=== PATIENT | male | born 1980 | race Caucasian/White ===

== ENCOUNTER 2022-04-10 14:52 | Emergency (ER) | payer OTHER, SELFPAY ==
[2022-04-10 15:00] VITALS: BP 145/80; PULSE 87; RESP 16; TEMP 37; O2SAT 98
--- NOTE | 2022-04-10 15:01 | ED.WOUNDLAC ---
HPI - Wound/Laceration General Chief Complaint: Wound/Laceration Stated Complaint: left thumb lac Time Seen by Provider: 04/10/22 15:01 Source: patient and RN notes reviewed History of Present Illness HPI narrative: Patient is a 41-year-old male who presents the urgent care with complaints of laceration to the left thumb. Patient states it happened approximately 1-1/2-hour prior to arrival. Patient states that he was using a blade knife to cut something and slipped. Patient believes he is up-to-date on his tetanus shot and does not wish to have one in the facility today. Patient states he briefly ran the wound under water but otherwise did not cleanse or take anything over the counter for pain prior to arrival. No other complaints. No acute distress noted. Patient aware of the plan of care. Some parts of this dictation were generated by voice recognition software and may contain typographical and/or grammatical inaccuracies. Related Data Home Medications Medication Instructions Recorded Confirmed lisinopril 20 1 tablet PO DAILY 04/10/22 04/10/22 mg-hydrochlorothiazide 25 mg tablet paroxetine HCl 20 mg tablet 1 tablet PO DAILY 04/10/22 04/10/22 Allergies Allergy/AdvReac Type Severity Reaction Status Date / Time No Known Allergies Allergy Verified 04/10/22 15:06 Review of Systems Review of Systems: CONSTITUTIONAL: Denies fever, chills, or sweats. EYES: Denies visual changes, redness, or discharge. ENT: Denies rhinorrhea, congestion, sore throat, or otalgia. CARDIOVASCULAR: Denies chest pain, palpitations, or edema. RESPIRATORY: Denies cough or dyspnea. GASTROINTESTINAL: Denies abdominal pain, nausea, vomiting, or diarrhea. GENITOURINARY: Denies dysuria or hematuria. SKIN: Reports of a laceration to the left thumb. denies rash or itching. MUSCULOSKELETAL: Denies back pain, joint pain, or myalgia. NEUROLOGIC: Denies headache, numbness, or weakness. All other systems reviewed are negative, except as documented in HPI. PMFSH Comments At the time of my signature, I reviewed and agree with the nursing past medical, surgical, social, and family history. There is no relevant family history pertinent to the patient complaint. Exam Narrative: GENERAL: This is a well-nourished, well-developed patient, in no apparent distress. HEAD: normocephalic, atraumatic. EYES: PERRL. Sclera clear/white. Vision is grossly intact. EARS: External ears normal NOSE: External nose normal with no obvious nasal discharge, nares without redness, no rhinorrhea. THROAT: Mucous membranes moist NECK: Neck supple SKIN: 1.5 cm linear laceration to the thenar eminence of the left thumb. Warm, intact with no suspicious lesions or rash, good texture and turgor. NEURO: awake, alert, and oriented to person, place and time. There were no obvious focal neurologic abnormalities. EXTREMITIES: Range of motion to left upper extremity within normal limits with positive strong left radial pulse and capillary refill less than 2 seconds. Course Course Level of Care: Express Care Visit Vital Signs Vital signs: Vital Signs Temperature 98.6 F 04/10/22 15:00 Pulse Rate 87 04/10/22 15:00 Respiratory Rate 16 04/10/22 15:00 Blood Pressure 145/80 H 04/10/22 15:00 Pulse Oximetry 98 04/10/22 15:00 Oxygen Delivery Room Air 04/10/22 15:00 Temperature 98.6 F 04/10/22 15:00 Pulse Rate 87 04/10/22 15:00 Respiratory Rate 16 04/10/22 15:00 Blood Pressure 145/80 H 04/10/22 15:00 Pulse Oximetry 98 04/10/22 15:00 Oxygen Delivery Room Air 04/10/22 15:00 Reviewed-patient is informed that they may have pre-hypertension or hypertension based on a blood pressure reading in the department. I recommend the patient call the primary care provider listed on their discharge instructions or a physician of their choice this week to arrange follow-up for further evaluation of possible pre-hypertension or hypertension. Procedures Laceration La
== END 2022-04-10 15:30 | disposition home or self-care (01) ==
PROVIDERS: Emergency Provider Nurse Practitioner Family; PCP Internal Medicine Infectious Disease
DX: S61.012A Laceration without foreign body of left thumb without damage to nail, initial encounter (principal); W26.0XXA Contact with knife, initial encounter; I10 Essential (primary) hypertension; F32.A Depression, unspecified
CPT/HCPCS: 12001; 99212; G0463